=== PATIENT | female | born 1985 | race African-American/Black ===

== ENCOUNTER 2023-01-04 10:17 | Emergency (ER) | payer OTHER ==
[2023-01-04 10:26] VITALS: TEMP 98.6; BMI 41.5
[2023-01-04] MEDS ORDERED: LACTATED RINGERS SOLUTION 1000 ML INFUS.BAG IV ONE (10:53)
[2023-01-04] MEDS ORDERED: ACETAMINOPHEN 1000 MG/100 ML BAG IVPB ONE (10:53)
[2023-01-04] MEDS ORDERED: MAG HYDROX/AL HYDROX/SIMETH -MYLANTA- ORAL SUSPENSION PO ONE (10:53)
[2023-01-04] MEDS ORDERED: FAMOTIDINE 20 MG/50 ML IVPB 20 MG/50 ML MG IVPB ONE ×2 (10:53→11:16)
[2023-01-04] MEDS ORDERED: MAG HYDROX/AL HYDROX/SIMETH 30 ML UNIT-DOSE CUP ONE ×2 (11:16)
[2023-01-04] MEDS ORDERED: ACETAMINOPHEN INJECTION 100 ML IVPB ONE (11:16)
[2023-01-04 12:32] LABS: POTASSIUM 4.8 mmol/L (3.5-5.1)
[2023-01-04 12:33] LABS: BASO % 0.3 % (0-2.0); EOS % 1.1 % (0-4.5); HEMATOCRIT 40.6 % (32.4-45.2); HEMOGLOBIN 13.3 GM/dL (10.7-15.3); LYMPH % 20.5 % (8-40); MCH 25.8 pg (25.7-33.7); MCHC 32.8 g/dl (32.0-36.0); MEAN CELL VOLUME 78.8 fl (80-96); MEAN PLT VOLUME 7.9 fl (7.5-11.1); NEUT % 73.1 % (42.8-82.8); PLATELET COUNT 294 10^3/uL (134-434); RBC 5.15 M/mm3 (3.60-5.2); WHITE BLOOD COUNT 7.3 K/mm3 (4.0-10.0)
[2023-01-04 12:34] LABS: ALBUMIN 3.8 g/dl (3.4-5.0); CALCIUM 9.7 mg/dL (8.5-10.1)
[2023-01-04 12:35] LABS: BLOOD UREA NITROGEN 15.2 mg/dL (7-18)
[2023-01-04 12:38] LABS: CREATININE 0.9 mg/dL (0.55-1.3)
[2023-01-04 12:39] LABS: BILIRUBIN,TOTAL 0.4 mg/dL (0.2-1); TOT PROT 7.9 g/dl (6.4-8.2)
[2023-01-04 13:18] LABS: EPI CELLS >36 /uL (0-25.1); HYALINE CASTS 0 /uL (0-3.1); PH,URINE 6.5 (5.0-8.0); URINE APPEARANCE CLEAR; URINE BACTERIA 5942 /uL (0-1359); URINE BILIRUBIN NEGATIVE (NEGATIVE); URINE COLOR YELLOW; URINE GLUCOSE (UA) NEGATIVE (NEGATIVE); URINE KETONE NEGATIVE (NEGATIVE); URINE LEUK ESTERASE 1+ (NEGATIVE); URINE NITRITE NEGATIVE (NEGATIVE); URINE PROTEIN NEGATIVE (NEGATIVE); URINE RBC 14 /uL (0-23.9); URINE UROBILINOGEN 0.2 mg/dL (0.2-1.0); URINE WBC 83 /uL (0-25.8)
[2023-01-04 15:44] LABS: EPI CELLS >36 /uL (0-25.1); HYALINE CASTS 1 /uL (0-3.1); PH,URINE 6.5 (5.0-8.0); URINE APPEARANCE CLEAR; URINE BACTERIA 2779 /uL (0-1359); URINE BILIRUBIN NEGATIVE (NEGATIVE); URINE COLOR YELLOW; URINE GLUCOSE (UA) NEGATIVE (NEGATIVE); URINE KETONE NEGATIVE (NEGATIVE); URINE LEUK ESTERASE 2+ (NEGATIVE); URINE NITRITE NEGATIVE (NEGATIVE); URINE PROTEIN NEGATIVE (NEGATIVE); URINE RBC 2 /uL (0-23.9); URINE UROBILINOGEN 0.2 mg/dL (0.2-1.0); URINE WBC 152 /uL (0-25.8)
[2023-01-04 15:54] VITALS: BP 121/55; PULSE 81; RESP 18
== END 2023-01-04 16:09 | disposition home or self-care (01) ==
LOC: JER 10:17
PROC: 3E033GC Introduction of Other Therapeutic Substance into Peripheral Vein, Percutaneous Approach (ICD-10-PCS; principal; 2023-01-04)
PROC: 3E033NZ Introduction of Analgesics, Hypnotics, Sedatives into Peripheral Vein, Percutaneous Approach (ICD-10-PCS; 2023-01-04)
DX: O26.891 Other specified pregnancy related conditions, first trimester (principal); R10.13 Epigastric pain; O23.41 Unspecified infection of urinary tract in pregnancy, first trimester; N39.0 Urinary tract infection, site not specified; R31.9 Hematuria, unspecified; Z3A.01 Less than 8 weeks gestation of pregnancy
CPT/HCPCS: 36415; 71045-TC-FY; 76830-TC; 80053; 81003; 83690; 84702; 84703; 85025; 86850; 86900; 86901; 87086; 87186; 93005; 93010; 99285-25

== ENCOUNTER 2023-01-06 11:35 | Emergency (ER) | payer OTHER ==
[2023-01-06 11:46] VITALS: BP 106/64; PULSE 87; RESP 20; TEMP 98.1; BMI 41.5
== END 2023-01-06 15:14 | disposition home or self-care (01) ==
LOC: JERFT 11:35
DX: O00.80 Other ectopic pregnancy without intrauterine pregnancy (principal); Z32.01 Encounter for pregnancy test, result positive; Z3A.00 Weeks of gestation of pregnancy not specified
CPT/HCPCS: 36415; 76817-TC; 84702; 99284-25

== ENCOUNTER 2023-02-28 17:15 | Emergency (ER) | payer OTHER ==
[2023-02-28 17:27] VITALS: BP 144/72; PULSE 77; RESP 19; TEMP 98.2; BMI 43.2
[2023-02-28] MEDS ORDERED: ACETAMINOPHEN 500 MG TABLET (FP) PO ONE (18:47)
== END 2023-02-28 19:30 | disposition left against medical advice (07) ==
LOC: JER 17:15
DX: N92.2 Excessive menstruation at puberty (principal); R53.1 Weakness; R10.30 Lower abdominal pain, unspecified; R42 Dizziness and giddiness
CPT/HCPCS: 99283-25; 99284-25

== ENCOUNTER 2023-03-26 23:07 | Emergency (ER) | payer OTHER ==
[2023-03-26 23:30] VITALS: BP 158/71; PULSE 84; RESP 18; TEMP 97.5; BMI 44.9
[2023-03-27] MEDS ORDERED: ACETAMINOPHEN 325 MG TABLET (FP) PO ONE (00:01)
[2023-03-27] MEDS ORDERED: ACETAMINOPHEN 325 MG TABLET (FP) ONE (00:29)
[2023-03-27 01:18] LABS: BASO % 0.2 % (0-2.0); EOS % 1.4 % (0-4.5); HEMATOCRIT 37.7 % (32.4-45.2); HEMOGLOBIN 12.7 GM/dL (10.7-15.3); LYMPH % 21.5 % (8-40); MCH 26.3 pg (25.7-33.7); MCHC 33.8 g/dl (32.0-36.0); MEAN CELL VOLUME 77.8 fl (80-96); MEAN PLT VOLUME 7.8 fl (7.5-11.1); MONO % 4.6 % (3.8-10.2); NEUT % 72.3 % (42.8-82.8); PLATELET COUNT 272 10^3/uL (134-434); RBC 4.85 M/mm3 (3.60-5.2); RDW 15.1 % (11.6-15.6); WHITE BLOOD COUNT 6.7 K/mm3 (4.0-10.0)
[2023-03-27 01:46] LABS: POTASSIUM 3.9 mmol/L (3.5-5.1)
[2023-03-27 01:48] LABS: CALCIUM 9.1 mg/dL (8.5-10.1)
[2023-03-27 01:49] LABS: ALBUMIN 3.5 g/dl (3.4-5.0); BLOOD UREA NITROGEN 15.5 mg/dL (7-18); MAGNESIUM 1.9 mg/dL (1.8-2.4)
[2023-03-27 01:52] LABS: CREATININE 1.1 mg/dL (0.55-1.3)
[2023-03-27 01:54] LABS: BILIRUBIN,TOTAL 0.2 mg/dL (0.2-1); TOT PROT 7.6 g/dl (6.4-8.2)
[2023-03-27] MEDS ORDERED: IBUPROFEN 400 MG TABLET (FP) PO ONE ×2 (03:12→03:19)
== END 2023-03-27 03:55 | disposition home or self-care (01) ==
LOC: JER 23:07
DX: R07.9 Chest pain, unspecified (principal); R51.9 Headache, unspecified; M94.0 Chondrocostal junction syndrome [Tietze]; R42 Dizziness and giddiness; Z20.822 Contact with and (suspected) exposure to COVID-19
CPT/HCPCS: 0241U-QW; 36415; 71046-TC-FY; 80053; 83735; 84484; 84703; 85025; 93005; 93010; 99285-25

== ENCOUNTER 2023-06-01 10:09 | Emergency (ER) | payer OTHER ==
[2023-06-01 10:18] VITALS: BP 140/85; PULSE 94; RESP 18; TEMP 98.3; BMI 44.9
== END 2023-06-01 11:43 | disposition home or self-care (01) ==
LOC: JER 10:09 → JERFT 10:09
DX: T88.9XXA Complication of surgical and medical care, unspecified, initial encounter (principal); K13.79 Other lesions of oral mucosa
CPT/HCPCS: 99282-25